=== PATIENT | male | born 2000 | race Caucasian/White ===

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

== ENCOUNTER 2019-01-12 18:43 | Emergency (ER) | payer SELFPAY | END 2019-01-12 19:05 | disposition home or self-care (01) | LOC: BURERS 18:43 | DX: B37.2 Candidiasis of skin and nail (principal); F17.210 Nicotine dependence, cigarettes, uncomplicated | CPT/HCPCS: 99282 ==

== ENCOUNTER 2019-11-06 23:29 | Emergency (ER) | payer SELFPAY ==
[2019-11-06] MEDS ORDERED: Sulfameth/Trimethoprim DS 800-160mg TAB ONE (23:54)
== END 2019-11-06 23:50 | disposition home or self-care (01) ==
LOC: BURERS 23:29
DX: B37.2 Candidiasis of skin and nail (principal); L02.211 Cutaneous abscess of abdominal wall; L08.9 Local infection of the skin and subcutaneous tissue, unspecified; B96.89 Other specified bacterial agents as the cause of diseases classified elsewhere; F17.220 Nicotine dependence, chewing tobacco, uncomplicated
CPT/HCPCS: 99282

== ENCOUNTER 2020-10-01 14:33 | Emergency (ER) | payer SELFPAY ==
[2020-10-01] MEDS ORDERED: Ketorolac Tromethamine 30 MG/ML VIAL ONE (14:54)
== END 2020-10-01 15:15 | disposition home or self-care (01) ==
LOC: BURERS 14:33
DX: M75.22 Bicipital tendinitis, left shoulder (principal); M62.838 Other muscle spasm; F17.210 Nicotine dependence, cigarettes, uncomplicated; F17.220 Nicotine dependence, chewing tobacco, uncomplicated
CPT/HCPCS: 96372; 99283; J1885

== ENCOUNTER 2021-01-03 10:50 | Emergency (ER) | payer SELFPAY ==
[2021-01-03] MEDS ORDERED: Bicillin LA 1.2 MILLION UNITS/2 ML SYRINGE ONE (11:19)
[2021-01-03] MEDS ORDERED: Dexamethasone 4 MG TAB ONE (11:19)
== END 2021-01-03 11:35 | disposition home or self-care (01) ==
LOC: BURERS 10:50
DX: J02.9 Acute pharyngitis, unspecified (principal); F17.210 Nicotine dependence, cigarettes, uncomplicated; F17.220 Nicotine dependence, chewing tobacco, uncomplicated
CPT/HCPCS: 96372; 99283; J0561; J8540

== ENCOUNTER 2021-01-14 20:07 | Emergency (ER) | payer OTHER, SELFPAY ==
[2021-01-14] MEDS ORDERED: Boostrix 0.5 ML (Tdap) VIAL IM ONE (20:08)
[2021-01-14] MEDS ORDERED: TETANUS, DIPHTHERIA TOX,ADULT (TDVAX) 0.5 ML VIAL IM ONE (20:38)
== END 2021-01-14 20:45 | disposition home or self-care (01) ==
LOC: BURERS 20:07
DX: S60.451A Superficial foreign body of left index finger, initial encounter (principal); F17.210 Nicotine dependence, cigarettes, uncomplicated; F17.220 Nicotine dependence, chewing tobacco, uncomplicated; W45.8XXA Other foreign body or object entering through skin, initial encounter
CPT/HCPCS: 90471; 90714; 90715